=== PATIENT | male | born 1995 | race Caucasian/White ===

== ENCOUNTER 2019-09-20 22:14 | Emergency (ER) | payer OTHER ==
[~2019-09-20] VITALS: Ht 167.6 cm; Wt 83.2 kg
[2019-09-21 01:00] VITALS: BP 125/74
[2019-09-21] MEDS ORDERED: IBUPROFEN 800 MG TABLET PO ONE (01:00)
== END 2019-09-21 01:06 | disposition home or self-care (01) ==
LOC: EMS 22:15
DX: S39.012A Strain of muscle, fascia and tendon of lower back, initial encounter (principal); S80.211A Abrasion, right knee, initial encounter; F17.210 Nicotine dependence, cigarettes, uncomplicated; V43.52XA Car driver injured in collision with other type car in traffic accident, initial encounter; Y93.89 Activity, other specified; Y92.481 Parking lot as the place of occurrence of the external cause; Y99.8 Other external cause status